=== PATIENT | male | born 2000 | race Caucasian/White ===

== ENCOUNTER 2019-11-26 14:18 | Emergency (ER) | payer OTHER ==
[2019-11-26] MEDS ORDERED: Dexamethasone 10 MG/ML VIAL ONE (15:42)
[2019-11-26] MEDS ORDERED: Ketorolac Tromethamine 30 MG/ML VIAL ONE (15:42)
== END 2019-11-26 16:08 | disposition home or self-care (01) ==
LOC: ERS 14:18
DX: J02.8 Acute pharyngitis due to other specified organisms (principal); F41.9 Anxiety disorder, unspecified; F32.9 Major depressive disorder, single episode, unspecified; F17.210 Nicotine dependence, cigarettes, uncomplicated
CPT/HCPCS: 87081; 87430; 96372; 99283; J1100; J1885